=== PATIENT | male | born 1965 ===

== ENCOUNTER 2020-02-14 11:35 | Emergency (ER) | payer OTHER | END 2020-02-14 11:39 | disposition home or self-care (01) | LOC: JVIRT 11:35 | DX: Z20.828 Contact with and (suspected) exposure to other viral communicable diseases (principal) | CPT/HCPCS: C9803; G2012-GT; Q3014-GT; U0003 ==

== ENCOUNTER 2020-04-04 10:58 | Emergency (ER) | payer OTHER | END 2020-04-04 11:25 | disposition home or self-care (01) | LOC: JVIRT 10:58 | DX: Z11.52 Encounter for screening for COVID-19 (principal) | CPT/HCPCS: C9803; G2251-GT; Q3014-GT; U0003 ==

== ENCOUNTER 2020-04-10 10:14 | Emergency (ER) | payer OTHER | END 2020-04-10 11:55 | disposition home or self-care (01) | LOC: JVIRT 10:14 | DX: Z11.52 Encounter for screening for COVID-19 (principal) | CPT/HCPCS: C9803; G2251-GT; U0003 ==